=== PATIENT | male | born 2005 | race Caucasian/White ===

== ENCOUNTER 2024-06-05 21:45 | Emergency (ER) | payer OTHER ==
[~2024-06-05] VITALS: Ht 182.9 cm; Wt 118.2 kg
[2024-06-05 22:07] VITALS: BP 146/86; PULSE 76; RESP 20; TEMP 98.5; O2SAT 98
[2024-06-06 01:34] LABS: COVID AG,FIA SOURCE NASAL SWAB
[2024-06-06 01:52] LABS: INFLUENZA TYPE A NEGATIVE FOR TYPE A (NEGATIVE); INFLUENZA TYPE B NEGATIVE FOR TYPE B (NEGATIVE)
[2024-06-06 01:53] LABS: SARS-COV2 (COVID) ANTIGEN,FIA Negative (Negative)
[2024-06-06] MEDS ORDERED: AZIT250T9 PO (01:56)
[2024-06-06 09:07] LABS: INFLUENZA A-RTPCR,COMBO NEGATIVE (NEGATIVE); INFLUENZA B-RTPCR,COMBO NEGATIVE (NEGATIVE); RESPIRATORY SYNCYTIAL VRS-PCR NEGATIVE (NEGATIVE); SARS COVID19 RTPCR, COMBO NEGATIVE (NEGATIVE)
== END 2024-06-06 02:35 | disposition home or self-care (01) ==
LOC: EMS 21:45
DX: J06.9 Acute upper respiratory infection, unspecified (principal); Z88.7 Allergy status to serum and vaccine; Z20.822 Contact with and (suspected) exposure to COVID-19
CPT/HCPCS: 99284; 0241U; 87430; 87804; 71045; 87426